=== PATIENT | male | born 2000 | race Hispanic/Latino ===

== ENCOUNTER 2021-06-04 13:23 | Inpatient (IN) | payer BC ==
[~2021-06-04 13:23] MED LIST: Iopamidol-370 76% 500 ML 1 ML ONE
[2021-06-04 13:50] LABS: Hemoglobin 16.2 g/dL (14.0-18.0); Mean Corpuscular HGB CONC 33.9 g/dL (32.0-36.0); Mean Corpuscular Hemoglobin 32.3 pg (27.0-31.0); Mean Corpuscular Volume 95.2 fL (78.0-98.0); Mean Platelet Volume 8.6 fL (7.4-10.4); Platelet Count 234 thou/uL (130-400); RBC Distribution Width 11.4 % (11.5-14.5); Red Blood Cell (RBC) Count 5.02 mill/uL (4.70-6.10); White Blood Cell (WBC) Count 9.2 thou/uL (4.8-10.8)
[2021-06-04 14:09] LABS: ALT (SGPT) 509 U/L (8-55); AST (SGOT) 137 U/L (5-34); Albumin 3.8 g/dL (3.5-5.0); Alkaline Phosphatase 194 U/L (40-110); Anion Gap 12 mmol/L (10-20); BUN (Urea Nitrogen) 12 mg/dL (8.9-20.6); Bilirubin, Total 1.1 mg/dL (0.2-1.2); Calc. Creatinine Clearance 0 mL/min (70-130); Calcium 9.5 mg/dL (7.8-10.44); Carbon Dioxide 27 mmol/L (22-29); Chloride 102 mmol/L (98-107); Globulin 3.8 g/dL (2.4-3.5); Glucose 136 mg/dL (70-105); Potassium 4.3 mmol/L (3.5-5.1); Protein, Total 7.6 g/dL (6.0-8.3); Sodium 137 mmol/L (136-145)
[2021-06-04 14:26] LABS: Band 6 % (5-11); Lymphocytes 4 % (21-51); MDiff Complete? YES; Monocytes 6 % (0-10); Neutrophil 83 % (42-75); Platelet Morphology Comment Appears Adequate; RBC Morphology Normal; Reactive Lymphocytes 1 % (0-10)
[2021-06-04] MEDS ORDERED: Dexamethasone 10 MG/ML VIAL ONE (14:27)
[2021-06-04] MEDS ORDERED: Acetaminophen 500 MG TAB ONE (14:31)
[2021-06-04] MEDS ORDERED: Albuterol 200 PUFF (6.7GM INHALER) ONE (14:40)
[2021-06-04] MEDS ORDERED: Loperamide HCl 2 MG CAP PO PRN ×2 (15:21)
[2021-06-04] MEDS ORDERED: Acetaminophen 325 MG TAB PO PRN (15:21)
[2021-06-04] MEDS ORDERED: Ondansetron ODT 4 MG TAB PO PRN (15:21)
[2021-06-04] MEDS ORDERED: Ondansetron PF 4 MG/2 ML Vial IVP PRN (15:21)
[2021-06-04] MEDS ORDERED: Acetaminophen 650 MG Suppository PR PRN (15:21)
[2021-06-04] MEDS ORDERED: Enoxaparin Sodium 40 MG/0.4 ML SYRINGE SC SCH (15:30)
[2021-06-04] MEDS ORDERED: Albuterol 200 PUFF (6.7GM INHALER) INH PRN (16:46)
[2021-06-04 16:51] VITALS: BMI 28.7
[2021-06-04] MEDS: Sodium Chloride 0.9% 1,000 ML IV SCH (17:19)
[2021-06-04] MEDS: Guaifenesin DM 100-10/5 ML UDCUP PO PRN (17:19)
[2021-06-04] MEDS: Benzonatate 100 MG CAP PO PRN (17:19)
[2021-06-04] MEDS: Famotidine 20 MG TAB PO SCH (19:13)
[2021-06-05] MEDS: Guaifenesin DM 100-10/5 ML UDCUP PO PRN ×2 (02:51→21:53)
[2021-06-05] MEDS: Sodium Chloride 0.9% 1,000 ML IV SCH ×3 (02:51→21:46)
[2021-06-05] MEDS: Benzonatate 100 MG CAP PO PRN (02:51)
[2021-06-05 06:06] LABS: #Lymphocytes 0.9 thou/uL (1.20-3.40); #Monocytes 0.8 thou/uL (0.11-0.59); #Neutrophils 4.5 thou/uL (1.40-6.50); %Basophils 0.3 % (0.0-1.0); %Eosinophils 0.1 % (0.0-10.0); %Lymphocytes 14.5 % (21.0-51.0); %Monocytes 13.2 % (0.0-10.0); %Neutrophils 71.9 % (42.0-75.0); Mean Corpuscular HGB CONC 34.2 g/dL (32.0-36.0); Mean Corpuscular Hemoglobin 32.6 pg (27.0-31.0); Mean Corpuscular Volume 95.4 fL (78.0-98.0); Mean Platelet Volume 8.4 fL (7.4-10.4); Platelet Count 268 thou/uL (130-400); RBC Distribution Width 11.3 % (11.5-14.5); Red Blood Cell (RBC) Count 4.61 mill/uL (4.70-6.10); White Blood Cell (WBC) Count 6.3 thou/uL (4.8-10.8)
[2021-06-05 06:37] LABS: ALT (SGPT) 348 U/L (8-55); AST (SGOT) 55 U/L (5-34); Albumin 3.3 g/dL (3.5-5.0); Alkaline Phosphatase 155 U/L (40-110); Anion Gap 11 mmol/L (10-20); BUN (Urea Nitrogen) 15 mg/dL (8.9-20.6); Bilirubin, Total 0.8 mg/dL (0.2-1.2); CRP (Inflammatory) 17.99 mg/dL (= or < 0.5); Calc. Creatinine Clearance 141 mL/min (70-130); Carbon Dioxide 27 mmol/L (22-29); Chloride 106 mmol/L (98-107); Globulin 3.5 g/dL (2.4-3.5); Glucose 122 mg/dL (70-105); Potassium 4.8 mmol/L (3.5-5.1); Protein, Total 6.8 g/dL (6.0-8.3); Sodium 139 mmol/L (136-145)
[2021-06-05] MEDS: Dexamethasone 4 MG TAB PO SCH (09:05)
[2021-06-05] MEDS: Ascorbic Acid 500 mg Chewable Tablet PO SCH (09:06)
[2021-06-05] MEDS: Famotidine 20 MG TAB PO SCH ×2 (09:06→21:43)
[2021-06-05] MEDS: Enoxaparin Sodium 40 MG/0.4 ML SYRINGE SC SCH (09:06)
[2021-06-05] MEDS: Zinc Sulfate 220 MG CAP PO SCH (09:06)
[2021-06-06 06:53] LABS: ALT (SGPT) 233 U/L (8-55); AST (SGOT) 32 U/L (5-34); Albumin 3.1 g/dL (3.5-5.0); Alkaline Phosphatase 127 U/L (40-110); Anion Gap 9 mmol/L (10-20); BUN (Urea Nitrogen) 13 mg/dL (8.9-20.6); Bilirubin, Total 0.6 mg/dL (0.2-1.2); CRP (Inflammatory) 7.06 mg/dL (= or < 0.5); Calc. Creatinine Clearance 141 mL/min (70-130); Calcium 8.7 mg/dL (7.8-10.44); Carbon Dioxide 28 mmol/L (22-29); Chloride 107 mmol/L (98-107); Globulin 3.3 g/dL (2.4-3.5); Glucose 104 mg/dL (70-105); Potassium 4.4 mmol/L (3.5-5.1); Protein, Total 6.4 g/dL (6.0-8.3); Sodium 140 mmol/L (136-145)
[2021-06-06] MEDS: Dexamethasone 4 MG TAB PO SCH (09:27)
[2021-06-06] MEDS: Ascorbic Acid 500 mg Chewable Tablet PO SCH (09:28)
[2021-06-06] MEDS: Famotidine 20 MG TAB PO SCH (09:28)
[2021-06-06] MEDS: Sodium Chloride 0.9% 1,000 ML IV SCH (09:28)
[2021-06-06] MEDS: Zinc Sulfate 220 MG CAP PO SCH (09:28)
[2021-06-06] MEDS: Enoxaparin Sodium 40 MG/0.4 ML SYRINGE SC SCH (09:28)
[2021-06-06 12:43] VITALS: TEMP 98.4
[2021-06-06 15:32] VITALS: BP 126/78
== END 2021-06-06 15:59 | disposition home or self-care (01) | DRG 177 ==
LOC: ERS 13:23 → ERHOLD 14:43 → T4-B 16:45
PROVIDERS: ADMIT Internal Medicine; ATTEND Internal Medicine
PROC: 8E0ZXY6 Isolation (ICD-10-PCS; principal; 2021-06-04)
DX: U07.1 COVID-19 (principal); J12.82 Pneumonia due to coronavirus disease 2019; J96.01 Acute respiratory failure with hypoxia; R74.01 Elevation of levels of liver transaminase levels; E86.9 Volume depletion, unspecified; Z79.899 Other long term (current) drug therapy
CPT/HCPCS: 36415; 71045; 71275; 80053; 84484; 85025; 85379; 86140; 93005; 94664; 96374; J1100; J1650; J7050; J8540; Q9967

== ENCOUNTER 2021-07-11 16:55 | Outpatient (CLI) | payer BC | END 2021-07-11 16:56 | disposition home or self-care (01) | LOC: SCSRAD 16:55 | PROVIDERS: ATTEND Family Medicine | DX: J12.82 Pneumonia due to coronavirus disease 2019 (principal); R91.8 Other nonspecific abnormal finding of lung field | CPT/HCPCS: 71046 ==

== ENCOUNTER 2022-01-13 09:39 | Outpatient (CLI) | payer BC ==
[2022-01-13 15:47] LABS: ALT (SGPT) 27 U/L (8-55); AST (SGOT) 20 U/L (5-34); Albumin 4.6 g/dL (3.5-5.0); Alkaline Phosphatase 86 U/L (40-110); Anion Gap 13 mmol/L (10-20); BUN (Urea Nitrogen) 15 mg/dL (8.9-20.6); Bilirubin, Total 1.3 mg/dL (0.2-1.2); Calc. Creatinine Clearance 0 mL/min (70-130); Calcium 9.4 mg/dL (7.8-10.44); Carbon Dioxide 27 mmol/L (22-29); Chloride 103 mmol/L (98-107); Globulin 2.6 g/dL (2.4-3.5); Glucose 81 mg/dL (70-105); Potassium 4.2 mmol/L (3.5-5.1); Protein, Total 7.2 g/dL (6.0-8.3); Sodium 139 mmol/L (136-145)
[2022-01-13 16:00] LABS: HIV (1/2) Antibody/Antigen Non-Reactive (NonReactive); HIV 1/2 INDEX 0.13 S/CO (<1.00)
[2022-01-13 18:57] LABS: Syphilis Antibody Nonreactive (Nonreactive); Syphilis Antibody Index 0.04 S/CO (<1.00 Non-Reactive)
[2022-01-14 17:37] LABS: Chlam.trachomatis by PCR,Urine Not Detected (NotDetected)
== END 2022-01-13 09:40 | disposition home or self-care (01) ==
LOC: SCSRAD 09:39
PROVIDERS: ATTEND Family Medicine
DX: J12.82 Pneumonia due to coronavirus disease 2019 (principal); Z11.3 Encounter for screening for infections with a predominantly sexual mode of transmission; R74.8 Abnormal levels of other serum enzymes
CPT/HCPCS: 36415; 71046; 80053; 86780; 87389; 87491; 87591